=== PATIENT | female | born 1950 | race Hispanic/Latino ===

== ENCOUNTER 2017-07-26 10:44 | Emergency (ER) | payer MEDICARE, BC ==
[2017-07-26 11:02] VITALS: RESP 18; TEMP 98.4
[2017-07-26 11:16] VITALS: BMI 45.8
[2017-07-26] MEDS ORDERED: TDAP Vaccine 0.5 mL Syr IM ONE (12:54)
[2017-07-26 13:14] LABS: BASO # 0.02 K/mm3 (0.0-2.0); BASO % 0.3 % (0.0-3.0); EOS # 0.1 (0.0-0.7); EOS % 0.8 % (1.5-5.0); GRAN # 6.45 (1.4-6.5); GRAN % 81.5 % (50.0-68.0); HEMOGLOBIN 13.6 g/dL (12.0-16.0); LYMPH # 0.9 (1.2-3.4); LYMPH % 10.7 % (22.0-35.0); MEAN CELL VOLUME 90.9 fl (80.0-105.0); MEAN CORPUSCULAR HEMOGLOBIN 30.8 pg (25.0-35.0); MEAN CORPUSCULAR HGB CONC 33.9 g/dl (31.0-37.0); MEAN PLATELET VOLUME 10.2 fl (7.0-11.0); MONO # 0.5 (0.1-0.6); MONO % 6.7 % (1.0-6.0); RBC 4.41 10^6/uL (3.5-6.1); RED CELL DISTRIBUTION WIDTH 13.8 % (11.5-14.5); WHITE BLOOD COUNT 7.9 10^3/ul (4.5-11.0)
--- NOTE | 2017-07-26 13:48 | ED PDOC ---
Arrival/HPI - General Chief Complaint: Abnormal Skin Integrity Time Seen by Provider: 07/26/17 12:38 Historian: Patient - History of Present Illness Narrative History of Present Illness (Text): 07/26/17 13:48 67-year-old female presents today with a laceration to the right leg. Patient states she was walking and her walker went into a pot hole causing her to fall forward hitting her right lower leg on the front end of her walker. Patient denies hitting her head. Denies abdominal pain. Denies chest pain or shortness of breath. Denies dizziness or weakness. Patient is unsure of her last tetanus shot. Patient states she is on xeralto and has had continued bleeding. She denies numbness weakness or tingling in the extremity. No other complaints Time/Duration: Prior to Arrival Past Medical History - Provider Review Nursing Documentation Reviewed: Yes - Travel History Have you recently traveled outside [place] w/in the past 3 mons?: No - Tetanus Immunization Tetanus Immunization: Unknown - Cardiac Hx Cardiac Disorders: Yes Hx Atrial Fibrillation: Yes - Pulmonary Hx Asthma: Yes - Neurological Hx Neurological Disorder: No - HEENT Hx HEENT Disorder: No - Renal Hx Renal Disorder: No - Endocrine/Metabolic Hx Endocrine Disorders: No - Hematological/Oncological Hx Anemia: Yes - Integumentary Hx Dermatological Disorder: No - Musculoskeletal/Rheumatological Hx Musculoskeletal Disorders: Yes Hx Spinal Stenosis: Yes - Gastrointestinal Hx Gastrointestinal Disorders: No - Genitourinary/Gynecological Hx Genitourinary Disorders: No - Psychiatric Hx Psychophysiologic Disorder: No Hx Substance Use: No - Surgical History Hx Hysterectomy: Yes Hx Orthopedic Surgery: Yes (L BUNYON, R KNEE) - Anesthesia Hx Anesthesia: Yes Family/Social History - Physician Review Nursing Documentation Reviewed: Yes Family/Social History: Unknown Family HX Smoking Status: Never Smoked Hx Alcohol Use: Yes Frequency of alcohol use: Socially Hx Substance Use: No Allergies/Home Meds Allergies/Adverse Reactions: Allergies crab Allergy (Verified 07/26/17 11:38) ITCHING nut - unspecified Allergy (Verified 07/26/17 11:38) ITCHING Penicillins Allergy (Verified 07/26/17 11:38) ITCHING Home Medications: Home Meds Medication Instructions Recorded Confirmed Ferrous Fumarate [Raúl-Sequel] 1 cap PO DAILY 07/26/17 07/26/17 Fluticasone/Salmeterol 250/50 1 puff NEB BID 07/26/17 07/26/17 [Advair Diskus 250/50] Montelukast [Singulair] 10 mg PO DAILY 07/26/17 07/26/17 Rivaroxaban [Xarelto] 20 mg PO DAILY 07/26/17 07/26/17 Review of Systems - Review of Systems Constitutional: absent: Fatigue, Fevers Respiratory: absent: SOB, Cough Cardiovascular: absent: Chest Pain, Palpitations Gastrointestinal: absent: Abdominal Pain, Nausea, Vomiting Genitourinary Female: absent: Dysuria, Frequency Musculoskeletal: Arthralgias Skin: Laceration Neurological: absent: Headache, Dizziness Psychiatric: absent: Anxiety, Depression Physical Exam Vital Signs Reviewed: Yes Vital Signs Temp Pulse Resp BP Pulse Ox 07/26/17 12:05 89 18 128/79 98 07/26/17 11:01 98.4 F 94 H 18 132/88 98 Temperature: Afebrile Blood Pressure: Normal Pulse: Regular Respiratory Rate: Normal Appearance: Positive for: Well-Appearing, Non-Toxic, Comfortable Pain Distress: None Mental Status: Positive for: Alert and Oriented X 3 - Systems Exam Head: Present: Atraumatic Neck: Present: Normal Range of Motion Respiratory/Chest: Present: Clear to Auscultation, Good Air Exchange. No: Respiratory Distress, Accessory Muscle Use Cardiovascular: Present: Regular Rate and Rhythm, Normal S1, S2. No: Murmurs Abdomen: Present: Normal Bowel Sounds. No: Tenderness, Distention, Peritoneal Signs, Rebound, Guarding Upper Extremity: Present: Normal ROM Lower Extremity: Present: Normal ROM, Tenderness (right leg; + superficial linear laceration noted to the anterior aspect of the lower leg with minimal bleeding noted; no crepitus or step offs; + ecchymosis; ), Swelling, Neurovascularly Intact, Capillary Refill < 2 s. No: CALF TENDERNESS, Erythema, Deformity Neurological: Present: GCS=15, Speech Normal Skin: Present: Warm, Dry Psychiatric: Present: Alert, Oriented x 3 Medical Decision Making ED Course and Treatment: 07/26/17 13:52 67-year-old female with right leg pain status post fall. Patient with superficial laceration/abrasion noted to the anterior aspect of the lower leg. Wound irrigated well with copious amounts of normal saline using high pressure irrigation Laceration was repaired with Dermabond. Tetanus updated X-ray of the right lower leg: No fracture and no foreign body Patient reassessment: Patient nontoxic well-appearing in no distress her stable vital signs. I discussed all results and after the patient is stressed the importance of follow-up with a primary care physician within the next 2 days. Advised me to return if symptoms worsen persist or if new concerning symptoms develop Patient verbalizes understanding of discharge instructions and need for immediate followup. all aspects of this case were discussed the attending of record. Impression:laceration, leg, contusion leg tylenol every 4 hours as needed for pain bactrim; 1 tablet twice daily x 7 days increase fluids keep wound clean and dry. follow up with the primary care physician within the next 2 days. return immediately if symptoms worsen,persist or if new symptoms develop; high fevers, increasing pain, redness, swelling or purulent discharge. - Lab Interpretations Lab Results: 07/26/17 12:53 Lab Results 07/26/17 12:53: WBC 7.9, RBC 4.41, Hgb 13.6, Hct 40.1, MCV 90.9, MCH 30.8, MCHC 33.9, RDW 13.8, Plt Count 253, MPV 10.2, Gran % 81.5 H, Lymph % (Auto) 10.7 L, [place] % (Auto) 6.7 H, Eos % (Auto) 0.8 L, Baso % (Auto) 0.3, Gran # 6.45, Lymph # 0.9 L, [place] # 0.5, Eos # 0.1, Baso # 0.02 - RAD Interpretation Radiology Orders: 07/26/17 12:55 TIBIA FIBULA RIGHT [RAD] Stat - Medication Orders Current Medication Orders: Discontinued Medications Tetanus/Reduced Diphtheria/Acell Pertussis (Boostrix Vaccine Inj) 0.5 ml IM .ONCE ONE Stop: 07/26/17 12:55 Procedure: Wound Repair - Procedure Procedure: Wound Repair: laceration, right leg - Consent Obtained Consent obtained: Verbal - Performed by Performed by: Mid-level Provider - Indications Indication(s):: Laceration - Location Location:: Right, Leg Shape:: Linear Dimensions Length cm: 1cm Depth:: Epidermis - Anesthetic Technique Local/Regional Anesthetic:: Other (NONE) - Debris Debris:: None - Irrigated Irrigated with ml of normal saline: copious amounts of NS using high pressure irrigation - Complexity Complexity:: Simple (one layer) - Wound repair method Elbe:: Tissue glue - Complications Complications: none - Patient tolerated procedure Patient Tolerated Procedure:: Well Disposition/Present on Arrival - Present on Arrival Any Indicators Present on Arrival: No History of DVT/PE: No History of Uncontrolled Diabetes: No Urinary Catheter: No History of Decub. Ulcer: No History Surgical Site Infection Following: None - Disposition Have Diagnosis and Disposition been Completed?: Yes Diagnosis: Laceration of leg, Contusion of leg Disposition: HOME/ ROUTINE Disposition Time: 13:56 Patient Plan: Discharge Condition: GOOD Discharge Instructions (ExitCare): Laceration (ED), Skin Adhesive Care (ED) Additional Instructions: tylenol every 4 hours as needed for pain bactrim; 1 tablet twice daily x 7 days increase fluids keep wound clean and dry. follow up with the primary care physician within the next 2 days. return immediately if symptoms worsen,persist or if new symptoms develop; high fevers, increasing pain, redness, swelling or purulent discharge. Prescriptions: Sulfamethoxazole/Trimethoprim [Bactrim DS 800 mg-160 mg] 1 tab PO BID #14 tab Referrals: Pamela Velázquez MD [Primary Care Provider] - Follow up with primary
--- NOTE | 2017-07-26 14:01 | RAD ---
PROCEDURE: Radiographs of the right tibia and fibula. HISTORY: fall, right leg pain/laceration COMPARISON: None available. TECHNIQUE: Frontal and lateral views obtained. FINDINGS: BONES: No fracture or destructive lesion.Plantar and Achilles Tendon insertion calcaneal spurs. JOINT SPACES: Unremarkable. OTHER FINDINGS: Diffuse soft tissue swelling, edema of calf. No visulaized radiopaque/visualized foreign body. IMPRESSION: Soft tissue swelling without acute articular or osseous abnormality.
[2017-07-26 14:38] VITALS: BP 126/78; PULSE 85; O2SAT 97
== END 2017-07-26 14:10 | disposition home or self-care (01) ==
LOC: ED 10:44
DX: S81.811A Laceration without foreign body, right lower leg, initial encounter (principal); W19.XXXA Unspecified fall, initial encounter; Y93.01 Activity, walking, marching and hiking; Z23 Encounter for immunization; I48.91 Unspecified atrial fibrillation; Z88.0 Allergy status to penicillin